=== PATIENT | male | born 1965 | race Caucasian/White ===

== ENCOUNTER 2016-07-22 08:29 | Day surgery (SDC) | payer OTHER ==
[~2016-07-22 08:29] MED LIST: LACTATED RINGERS 1,000 ML IV SCH
[2016-07-22] MEDS ORDERED: LACTATED RINGERS 1,000 ML ONE (08:39)
[2016-07-22] MEDS ORDERED: IV START KIT ONE (08:39)
[2016-07-22] MEDS ORDERED: FENTANYL 100 MCG/2 ML VIAL ONE (09:30)
[2016-07-22] MEDS ORDERED: PROPOFOL 20 ML IV ONE (09:31)
[2016-07-22] MEDS ORDERED: ONDANSETRON 4 MG/2ML 2 ML VIAL ONE (09:37)
[2016-07-22 15:36] LABS: HELICOBACTER PYLORII DETECTION NEGATIVE (NEGATIVE)
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
== END 2016-07-22 11:45 | disposition home or self-care (01) ==
LOC: SDC 08:29
PROVIDERS: ATTEND Internal Medicine Gastroenterology
PROC: 0DB98ZX Excision of Duodenum, Via Natural or Artificial Opening Endoscopic, Diagnostic (ICD-10-PCS; principal; 2016-07-22)
PROC: 0DB68ZX Excision of Stomach, Via Natural or Artificial Opening Endoscopic, Diagnostic (ICD-10-PCS; 2016-07-22)
DX: K29.70 Gastritis, unspecified, without bleeding (principal); K29.80 Duodenitis without bleeding; I48.91 Unspecified atrial fibrillation; E78.5 Hyperlipidemia, unspecified; M79.1 Myalgia; G89.29 Other chronic pain; G47.33 Obstructive sleep apnea (adult) (pediatric); Z87.891 Personal history of nicotine dependence
CPT/HCPCS: 87081; 43239; J3010; J2405; J7120